=== PATIENT | female | born 1990 | race Caucasian/White ===

== ENCOUNTER 2019-05-22 14:09 | Inpatient (IN) | payer SELFPAY ==
[~2019-05-22] VITALS: Ht 177.8 cm; Wt 54.2 kg
[2019-05-22] MEDS ORDERED: IV NS 0.9% 1,000 ML BAG IV ONE (14:30)
--- NOTE | 2019-05-22 14:30 | NUR ---
patient BIBRA and [employer], came in due to altered mental status, IV acces on the RAC G18, connected to the monitor and pulse ox. Kept comfortable, will continue to monitor accordingly.
--- NOTE | 2019-05-22 14:31 | NUR ---
ELVER (MOM) CAN BE REACHED AT FOR ANY FURTHER QUESTIONS.
[2019-05-22 14:36] LABS: BASOPHILS % (AUTO) 0.5 % (0.0-2.0); EOSINOPHILS % (AUTO) 0.2 % (0.0-6.0); HEMATOCRIT 41 % (33-45); HEMOGLOBIN 13.8 g/dL (11.5-14.8); LYMPHOCYTES # (AUTO) 1.7 /CMM (0.8-4.8); LYMPHOCYTES % (AUTO) 19.2 % (20.0-44.0); MEAN CORPUSCULAR HGB CONC 34 g/dl (31.0-36.0); MEAN CORPUSCULAR VOLUME 104 fL (82-100); MONOCYTES # (AUTO) 0.7 /CMM (0.1-1.30); MONOCYTES % (AUTO) 7.4 % (2.0-12.0); NEUTROPHILS # (AUTO) 6.6 /CMM (1.8-8.9); NEUTROPHILS % (AUTO) 72.7 % (43.0-81.0); PLATELET COUNT (AUTO) 343 /CMM (150-450); RED BLOOD CELL COUNT(AUTO) 3.92 MIL/uL (4.0-5.2); WHITE BLOOD COUNT (AUTO) 9.1 K/uL (4.3-11.0)
[2019-05-22 14:42] LABS: APPEARANCE,URINE Clear (CLEAR); BILIRUBIN,URINE MODERATE (NEGATIVE); BLOOD, URINE Negative Ery/uL (NEGATIVE); COLOR,URINE Yellow (YELLOW); KETONES,URINE 40 (NEGATIVE); LEUKOCYTE ESTERASE ,URINE Negative (NEGATIVE); NITRITE, URINE Negative (NEGATIVE); PH,URINE 5.5 (5.0-8.0); PROTEIN,URINE 30 mg/dl (NEGATIVE); UGLUCOSE Negative (NEGATIVE); UROBILINOGEN,URINE 0.2 EU/dL (0.2)
[2019-05-22 14:45] LABS: CALCIUM, SERUM 9.5 mg/dL (8.5-10.1); CARBON DIOXIDE 28 mmol/L (21-32); CHLORIDE 105 mmol/L (98-107); GLUCOSE 96 mg/dL (74-106); SODIUM SERUM 143 mmol/L (136-145); UREA NITROGEN, BLOOD 19 mg/dL (7-18)
[2019-05-22 14:53] LABS: ALANINE AMINOTRANSFERASE 19 U/L (12-78); ALCOHOL, BLOOD < 3 mg/dL (0-0); ALKALINE PHOSPHATASE 56 U/L (46-116); ASPARTATE AMINOTRANSFERASE 13 U/L (15-37); BILIRUBIN,DIRECT 0.2 mg/dL (0.0-0.2); BILIRUBIN,TOTAL 1.1 mg/dL (0.2-1.0); TOTAL PROTEIN, SERUM 7.7 g/dL (6.4-8.2)
[2019-05-22 14:54] LABS: ACETAMINOPHEN < 2 ug/ml (10-30); SALICYLATE 0.2 mg/dL (2.8-20.0)
[2019-05-22 15:09] LABS: CREATINE KINASE, TOTAL 26 U/L (26-192)
--- NOTE | 2019-05-22 16:26 | NUR ---
ATTEMPTED TO CALL RIVER CROSSING SUPERVISOR CARLEY FOR PSYCH EVAL, MAILBOX WAS FULL, UNABLE TO LEAVE VOICEMAIL.
--- NOTE | 2019-05-22 16:36 | NUR ---
BILINGUAL ACCOUNT MANAGER ETA 1 HOUR
--- NOTE | 2019-05-22 17:30 | NUR ---
abhijeet LCWS at bedside for eval.
--- NOTE | 2019-05-22 17:45 | NUR ---
patient in bed, in no apparent distress noted. arousable, opens her eyes. boyfriend at bedside. will continue to monitor accordingly.
--- NOTE | 2019-05-22 19:24 | NUR ---
endorsed to Stas FENG for ruchi.
[2019-05-22] MEDS ORDERED: LORAZEPAM INJ 2 MG/ML VIAL IV ONE (19:30)
--- NOTE | 2019-05-22 19:39 | NUR ---
EPIC CALLED DR CLOVIS LOUIS
[2019-05-22] MEDS ORDERED: IV D5/0.45 NACL 1,000 ML IV PRN (20:35)
[2019-05-22] MEDS ORDERED: ONDANSETRON HCL/PF 4 MG/2 ML VIAL IVP PRN (21:00)
[2019-05-22] MEDS ORDERED: Z GUARD REMEDY 2 OZ OINT TP PRN (21:00)
[2019-05-22] MEDS ORDERED: ACETAMINOPHEN 325 MG TABLET PO PRN (21:00)
[2019-05-22] MEDS ORDERED: MAG HYDROX/AL HYDROX/SIMETH 30 ML UDC PO PRN (21:00)
[2019-05-22] MEDS ORDERED: MAGNESIUM HYDROXIDE 30 ML UDC PO PRN (21:00)
[2019-05-22] MEDS ORDERED: LORAZEPAM INJ 2 MG/ML VIAL ONE (21:25)
--- NOTE | 2019-05-22 21:41 | NUR ---
Namrata burroughs in [facility] - 05/22/19 at 2147 by ANGELITA R UPPER ARM 18G MIDLINE INSERTED.
--- NOTE | 2019-05-22 21:47 | NUR ---
REPORT GIVEN TO KELVIN FENG FOR MARGARET.
--- NOTE | 2019-05-22 22:00 | NUR ---
RAHAT (BOYFRIEND) CAN BE REACHED FOR UPDATES AT
[2019-05-22 23:30] VITALS: BP 111/73
--- NOTE | 2019-05-22 23:30 | NUR ---
RN OPEN NOTES RECEIVED PATIENT FROM ER VIA ANKIT. A/OX2. NO SIGNS OF DISTRESS OR DISCOMFORT. BREATHING EVEN AND UNLABORED. IV ACCESS IN LAC, PATENT AND INTACT, NO SIGNS OF REDNESS OR INFILTRATION. ORIENTED PATIENT TO UNIT AND ROOM. PATIENT SELECTIVE WITH VERBAL RESPONSE. SHE WILL NOT ANSWER ANY QUESTIONS REGARDING HER MEDICAL HX BUT STATES SHE KNOWS SHE'S IN THE HOSPITAL, OTHERWISE SHE REMAINS IN BED SLEEPING. PER REPORT PT FOUND WANDERING WITH NO SHOES ON AND FAMILY REPORTS SHE WAS ON RECENT MENTAL HEALTH HOLD X6 DAYS AT [facility]. ATTACHED PATIENT TO TELE MONITOR WITH SR 88 NOTED. BED IN LOW LOCKED POSITION WITH SIDE RAILS X2. CALL LIGHT WITHIN REACH. WILL CONTINUE TO MONITOR.
--- NOTE | 2019-05-23 02:30 | NUR ---
RN NOTES PATIENT DISCONNECTED HERSELF FROM IVF'S. ATTEMPTED TO RECONNECT PATIENT AND REFUSED X3. PATIENT ADVISED OF RISK AND BENEFITS. WILL CONTINUE TO MONITOR.
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
--- NOTE | 2019-05-23 06:21 | NUR ---
RN NOTES PATIENT REFUSED AM LAB DRAW X3. PATIENT EDUCATION REINFORCED. WILL CONTINUE TO MONITOR.
--- NOTE | 2019-05-23 06:44 | NUR ---
RN CLOSING NOTES PATIENT RESTING IN BED. A/OX2. NO SIGNS OF DISTRESS OR DISCOMFORT. BREATHING EVEN AND UNLABORED. IV ACCESS IN LAC, PATENT AND INTACT, NO SIGNS OF REDNESS OR INFILTRATION. PATIENT REFUSING TO BE CONNECTED TO IVF. ATTACHED PATIENT TO TELE MONITOR WITH SR 68 NOTED. ALL NEEDS MET. NO SIGNIFICANT CHANGES THROUGH THE NIGHT. BED IN LOW LOCKED POSITION WITH SIDE RAILS X2. CALL LIGHT WITHIN REACH. WILL ENDORSE TO AM SHIFT FOR MARGARET.
--- NOTE | 2019-05-23 07:30 | NUR ---
AIR DEODORIZER SERVICER OPENING NOTES RECEIVED PATIENT IN BED, ASLEEP. AROUSABLE TO VERBAL AND TACTILE STIMULI. HOB ELEVATED. DURING INTERVIEW OF PATIENT, PATIENT VERBALLY RESPONSIVE BUT EYES REMAINED CLOSE. NO S/S OF RESPIRATORY DISTRESS WITH AN O2SAT OF 99% ROOM AIR. ON TELE MONITORING SR & SB: 59. DENIES ANY C/O PAIN NOR DISCOMFORT AT THIS TIME. SITTER AT BEDSIDE. LAC #20 INTACT AND PATENT. NO S/S OF COMPLICATIONS. PATIENT REFUSED TO BE CONNECTED TO IVF ORDERED DESPITE OF RISKS AND BENEFITS EXPLAINED. BED IN LOWEST POSITION. BED ALARM ON.
[2019-05-23 08:00] VITALS: BP 100/67
--- NOTE | 2019-05-23 10:52 | NUR ---
MS RN NOTES SEEN AND EXAMINED BY DR. VAZQUEZ WITH ORDER FOR D/C TELEMETRY. NOTED AND CARRIED OUT
--- NOTE | 2019-05-23 11:05 | NUR ---
MS RN NOTES PATIENT REFUSED BLOOD DRAW X2 DESPITE RISK AND BENEFITS EXPLAINED. PER SPORTS RECRUITER (GAETANO) SOMEONE WILL COME BETWEEN [phone] TO TRY AGAIN.
--- NOTE | 2019-05-23 13:55 | NUR ---
MS RN NOTES PATIENT AWAKE, CONVERSING WITH RAHAT GOLDSTEIN @ BEDSIDE. PAT AGREED TO HAVE BLOOD DRAWN RIGHT NOW, CALLED LAB AND SPOKE TO ANTIONETTE AND MADE AWARE DUE TO PATIENT REFUSED BLOOD DRAW EARLIER. PATIENT REFUSED TO BE CONNECTED TO IVF DESPITE OF ENCOURAGEMENT WITH RISKS AND BENEFITS EXPLAINED. ENCOURAGE PO MEAL INTAKE. CALL LIGHT WITHIN REACH.
[2019-05-23 15:17] LABS: BASOPHILS % (AUTO) 0.4 % (0.0-2.0); EOSINOPHILS % (AUTO) 0.8 % (0.0-6.0); HEMATOCRIT 37 % (33-45); HEMOGLOBIN 12.6 g/dL (11.5-14.8); LYMPHOCYTES # (AUTO) 1.8 /CMM (0.8-4.8); LYMPHOCYTES % (AUTO) 23.6 % (20.0-44.0); MEAN CORPUSCULAR HGB CONC 34 g/dl (31.0-36.0); MEAN CORPUSCULAR VOLUME 103 fL (82-100); MONOCYTES # (AUTO) 0.7 /CMM (0.1-1.30); MONOCYTES % (AUTO) 9.6 % (2.0-12.0); NEUTROPHILS # (AUTO) 4.9 /CMM (1.8-8.9); NEUTROPHILS % (AUTO) 65.6 % (43.0-81.0); PLATELET COUNT (AUTO) 284 /CMM (150-450); RED BLOOD CELL COUNT(AUTO) 3.54 MIL/uL (4.0-5.2); WHITE BLOOD COUNT (AUTO) 7.5 K/uL (4.3-11.0)
[2019-05-23 15:25] LABS: CALCIUM, SERUM 8.6 mg/dL (8.5-10.1); CREATININE 0.7 mg/dL (0.6-1.3); MAGNESIUM 1.8 mg/dL (1.8-2.4); PHOSPHORUS 3.7 mg/dL (2.5-4.9); POTASSIUM 3.7 mmol/L (3.5-5.1)
[2019-05-23 16:00] VITALS: BP 102/71
--- NOTE | 2019-05-23 17:30 | NUR ---
MS RN CLOSING NOTES PATIENT IN BED, ASLEEP. AROUSABLE TO VERBAL AND TACTILE STIMULI. HOB ELEVATED. SITTER AT BEDSIDE. IN NO APPARENT DISTRESS DURING THE SHIFT. PATIENT WITH EPISODES OF WAKING UP AND CONVERSING WITH STAFF THEN GOES BACK TO SLEEP AGAIN. DENIES ANY C/O PAIN NOR DISCOMFORT AT THIS TIME. LAC #20 INTACT AND PATENT. NO S/S OF COMPLICATIONS. PATIENT WITH POOR PO INTAKE DURING MEAL TIMES. PATIENT STILL REFUSES TO BE CONNECTED TO IVF ORDERED DESPITE ENCOURAGEMENT, EDUCATION PROVIDED INCLUDING EXPLANATIONS OF RISKS AND BENEFITS. PATIENT DECIDED TO LEAVE AGAINST MEDICAL ADVICE WITH BOYFRIEND RAHAT AT BEDSIDE. EXPLAINED RISK OF LEAVING AMA TO PATIENT AND BF. PER PATIENT, "I UNDERSTAND". SPOKE TO ANGELITA GIANG, AND STATED HE WILL TAKE PATIENT HOME AND TAKE CARE OF HER. DR RAMSEY MADE AWARE. PATIENT LEFT IN STABLE CONDITION WITH V/S WNL VIA PRIVATE CAR WITH NAGELITA GIANG.
== END 2019-05-23 17:25 | disposition left against medical advice (07) | DRG 640 ==
LOC: ER 14:13 → MED 21:25 → TELE 23:36 → MED 05-23 13:01
PROVIDERS: ADMIT Internal Medicine; ATTEND Family Medicine
DX: E86.0 Dehydration (principal); E43 Unspecified severe protein-calorie malnutrition; G92 Toxic encephalopathy; Z68.1 Body mass index [BMI] 19.9 or less, adult; F06.1 Catatonic disorder due to known physiological condition; F12.10 Cannabis abuse, uncomplicated
CPT/HCPCS: 36415; 70450-TC; 80048-TC; 80076-TC; 80305; 81000-TC; 82550-TC; 83735-TC; 84100-TC; 84702-TC; 85025-TC; 87081-TC; G0378; G0480; J2060; J3490; J7030

== ENCOUNTER 2019-10-27 15:02 | Emergency (ER) | payer MEDICAID ==
[~2019-10-27] VITALS: Ht 175.3 cm; Wt 55.3 kg
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
[2019-10-27 16:00] LABS: BASOPHILS # (AUTO) 0.1 /CMM (0.0-0.2); BASOPHILS % (AUTO) 0.4 % (0.0-2.0); EOSINOPHILS % (AUTO) 0.1 % (0.0-6.0); HEMATOCRIT 39 % (33-45); HEMOGLOBIN 13.2 g/dL (11.5-14.8); LYMPHOCYTES # (AUTO) 1.2 /CMM (0.8-4.8); LYMPHOCYTES % (AUTO) 10.6 % (20.0-44.0); MEAN CORPUSCULAR HGB CONC 34 g/dl (31.0-36.0); MEAN CORPUSCULAR VOLUME 102 fL (82-100); MONOCYTES # (AUTO) 0.7 /CMM (0.1-1.30); MONOCYTES % (AUTO) 5.8 % (2.0-12.0); NEUTROPHILS # (AUTO) 9.8 /CMM (1.8-8.9); NEUTROPHILS % (AUTO) 83.1 % (43.0-81.0); PLATELET COUNT (AUTO) 287 /CMM (150-450); RED BLOOD CELL COUNT(AUTO) 3.86 MIL/uL (4.0-5.2); WHITE BLOOD COUNT (AUTO) 11.8 K/uL (4.3-11.0)
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
[2019-10-27 16:13] LABS: CALCIUM, SERUM 9.3 mg/dL (8.5-10.1); CARBON DIOXIDE 24 mmol/L (21-32); CHLORIDE 102 mmol/L (98-107); CREATININE 0.9 mg/dL (0.6-1.3); GLUCOSE 95 mg/dL (74-106); POTASSIUM 4.1 mmol/L (3.5-5.1); SODIUM SERUM 138 mmol/L (136-145); UREA NITROGEN, BLOOD 15 mg/dL (7-18)
[2019-10-27 16:18] LABS: ALANINE AMINOTRANSFERASE 14 U/L (12-78); ALBUMIN 4.1 g/dL (3.4-5.0); ALKALINE PHOSPHATASE 57 U/L (46-116); ASPARTATE AMINOTRANSFERASE 14 U/L (15-37); BILIRUBIN,DIRECT 0.2 mg/dL (0.0-0.2); BILIRUBIN,TOTAL 1.3 mg/dL (0.2-1.0); TOTAL PROTEIN, SERUM 7.7 g/dL (6.4-8.2)
[2019-10-27 16:19] LABS: ACETAMINOPHEN < 2 ug/ml (10-30); ALCOHOL, BLOOD < 3 mg/dL (0-0); SALICYLATE < 2.8 mg/dL (2.8-20.0)
[2019-10-27 16:46] LABS: APPEARANCE,URINE Cloudy (CLEAR); BILIRUBIN,URINE SMALL (NEGATIVE); BLOOD, URINE Trace-intact Ery/uL (NEGATIVE); COLOR,URINE Yellow (YELLOW); KETONES,URINE 80 (NEGATIVE); LEUKOCYTE ESTERASE ,URINE Negative (NEGATIVE); NITRITE, URINE Positive (NEGATIVE); PROTEIN,URINE 100 mg/dl (NEGATIVE); UGLUCOSE Negative (NEGATIVE); UROBILINOGEN,URINE 0.2 EU/dL (0.2)
[2019-10-27] MEDS ORDERED: risperiDONE 1 MG TABLET ONE (16:47)
[2019-10-27] MEDS ORDERED: risperiDONE 1 MG TABLET PO ONE (17:00)
[2019-10-27 17:19] LABS: BACTERIA,URINE Many /HPF (None Seen); SQUAMOUS EPITHELIAL CELL,UR Moderate /HPF (None Seen)
--- NOTE | 2019-10-27 17:22 | NUR ---
ELVER HUGO [phone] MOM
[2019-10-27] MEDS ORDERED: IV NS 0.9% 1,000 ML BAG IV ONE (18:00)
--- NOTE | 2019-10-27 20:17 | NUR ---
Per Christopher from [facility], eta is [phone]
--- NOTE | 2019-10-27 21:24 | NUR ---
REPORT GIVEN KALPANA BRAXTON AT [place]
[2019-10-27 21:25] VITALS: BP 111/74
--- NOTE | 2019-10-27 21:25 | NUR ---
pt transported to [place] via private ambulance, pt left in stable condition, vss, nad, -sob, belongings with patient, report given
== END 2019-10-27 21:24 ==
LOC: ER 15:05
DX: F23 Brief psychotic disorder (principal); D75.89 Other specified diseases of blood and blood-forming organs; E86.0 Dehydration; R82.4 Acetonuria; F12.90 Cannabis use, unspecified, uncomplicated; Z90.89 Acquired absence of other organs
CPT/HCPCS: 36415; 80048; 80076; 80305; 80307; 80329; 81001; 84703; 85025; 87086; 96360; 99285; G0480; J7030; 81000-TC